=== PATIENT | male | born 1965 | race Caucasian/White ===

== ENCOUNTER 2017-02-02 10:31 | Day surgery (SDC) | payer OTHER ==
[~2017-02-02 10:31] MED LIST: Lactated Ringers 1,000 ML IV SCH; ceFAZolin 1 GM in Premix Bag 1 BAG IV ONE
[2017-02-02] MEDS ORDERED: fentaNYL 250 MCG/5 ML SDV ONE (10:46)
[2017-02-02] MEDS ORDERED: Propofol 200 MG/20 ML SDV ONE (10:46)
[2017-02-02] MEDS ORDERED: Lidocaine 2% 5 ML SDV ONE (10:46)
[2017-02-02] MEDS ORDERED: Midazolam 1 MG/ML 2 ML SDV ONE (10:46)
[2017-02-02] MEDS ORDERED: Ondansetron 4 MG/2 ML SDV ONE (10:47)
[2017-02-02] MEDS ORDERED: Ketorolac 30 MG/ML SDV ONE (10:47)
--- NOTE | 2017-02-02 11:23 | PCM.PREANE ---
Preanesthetic Assessment - Anesthesia/Transfusion/Family Hx Anesthesia History: Prior Anesthesia Without Reaction Transfusion History: No Prior Transfusion(s) - Review of Systems General: No Symptoms Pulmonary: No Symptoms (Smoker) Cardiovascular: Other (HTN/hypercholesterolemia) Gastrointestinal: Other (recent anal fissurectomy (01/28/17)) Neurological: No Symptoms Other: Reports: Diabetes (II, on metformin), Thyroid Problems (hypothyroid - on meds) - Physical Assessment NPO Status Date: 02/01/17 NPO Status Time: 23:30 O2 Sat by Pulse Oximetry: 95 Respiratory Rate: 16 Vital Signs: Last Vital Signs Temp 99.1 F 02/02/17 11:06 Pulse 78 02/02/17 11:06 Resp 16 02/02/17 11:06 BP 139/97 H 02/02/17 11:06 Pulse Ox 95 02/02/17 11:06 Height: 5 ft 10 in Weight: 202 lb ASA Class: 3 Mental Status: Alert & Oriented x3 Airway Class: Mallampati = 1 Dentition: Reports: Normal Dentition Thyro-Mental Finger Breadths: 3 Mouth Opening Finger Breadths: 3 ROM/Head Extension: Full Lungs: Clear to auscultation, Normal respiratory effort Cardiovascular: Regular Rate, Regular Rhythm, No Murmurs - Allergies Allergies/Adverse Reactions: Allergies Allergy/AdvReac Type Severity Reaction Status Date / Time No Known Allergies Allergy Verified 01/28/17 10:37 - Blood Blood Available: No Product(s) Available: None - Anesthesia Plan Pre-Op Medication Ordered: None - Acknowledgements Anesthesia Type Planned: General Anesthesia (LMA) Pt an Appropriate Candidate for the Planned Anesthesia: Yes Alternatives and Risks of Anesthesia Discussed w Pt/Guardian: Yes Pt/Guardian Understands and Agrees with Anesthesia Plan: Yes PreAnesthesia Questionnaire Cardiovascular History: Reports: High Cholesterol, Hypertension Genitourinary History: Reports: Other (See Below) Other Genitourinary History: presently has hematuria CT shows bladder tumor Endocrine/Metabolic History: Reports: Diabetes, Type II, Hypothyroidism - Past Surgical History Head Surgeries/Procedures: Reports: None GI Surgical History: Reports: Appendectomy, Colonoscopy, Hernia, Inguinal Other GI Surgeries/Procedures: colonoscopy with anal fissurectomy 01/28/17 Musculoskeletal Surgical History: Reports: Other (See Below) Other Musculoskeletal Surgeries/Procedures:: left hand surgery for crushed lt hand - SUBSTANCE USE Smoking Status *Q: Current Every Day Smoker Tobacco Use Within Last Twelve Months: Cigarettes Recreational Drug Use History: No - HOME MEDS Home Medications: Home Meds Fenofibrate Nanocrystallized [Fenofibrate] 145 mg PO DAILY 01/28/17 [History] Hydrochlorothiazide 12.5 mg PO DAILY 01/28/17 [History] Levothyroxine Sodium [Levoxyl] 50 mcg PO DAILY 01/28/17 [History] Valsartan 160 mg PO DAILY 01/28/17 [History] metFORMIN HCl [Metformin HCl] 500 mg PO BID 01/28/17 [History] - CURRENT (IN HOUSE) MEDS Current Meds: Current Medications Lactated Ringer's (Ringers, Lactated) 1,000 mls @ 100 mls/hr IV ASDIRECTED MEME Last Admin: 02/02/17 10:47 Dose: 100 mls/hr Discontinued Medications Fentanyl (Sublimaze) Confirm Administered Dose 250 mcg .ROUTE .STK-MED ONE Stop: 02/02/17 10:47 Cefazolin Sodium/Dextrose 1 gm (/ Premix) 50 mls @ 100 mls/hr IV ONCALL ONE Stop: 02/02/17 07:29 Cefazolin Sodium/Dextrose (Ancef) Confirm Administered Dose 50 mls @ as directed .ROUTE .STK-MED ONE Stop: 02/02/17 10:53 Ketorolac Tromethamine (Toradol) Confirm Administered Dose 30 mg .ROUTE .STK- MED ONE Stop: 02/02/17 10:48 Lidocaine (Xylocaine-Mpf 2%) Confirm Administered Dose 10 ml .ROUTE .STK-MED ONE Stop: 02/02/17 10:47 Midazolam HCl (Versed 1 Mg/Ml) Confirm Administered Dose 2 mg .ROUTE .STK-MED ONE Stop: 02/02/17 10:47 Ondansetron HCl (Zofran) Confirm Administered Dose 4 mg .ROUTE .STK-MED ONE Stop: 02/02/17 10:48 Propofol (Diprivan 20 Ml) Confirm Administered Dose 400 mg .ROUTE .STK-MED ONE Stop: 02/02/17 10:47
[2017-02-02] MEDS ORDERED: Labetalol 100 MG/20 ML MDV ONE (12:44)
[2017-02-02] MEDS ORDERED: fentaNYL 100 MCG/2 ML SDV IVPUSH PRN (12:48)
--- NOTE | 2017-02-02 13:41 | PCM.POSTAN ---
POST ANESTHESIA ASSESSMENT - MENTAL STATUS Mental Status: oriented Free Text/Narrative:: Patient still with residual sedation-analgesia so sleepy but responsive. To SDS for phase II. - RESPIRATORY Respiratory Status: respiratory rate WNL, airway patent, O2 saturation stable - CARDIOVASCULAR CV Status: pulse rate WNL, blood pressure stable - GASTROINTESTINAL GI Status: no symptoms - POST OP HYDRATION Hydration Status: adequate & stable
[2017-02-02 15:12] VITALS: BP 95/58
--- NOTE | 2017-02-02 21:29 | OR ---
SURGEON: Tyler Lee M.D. DATE OF PROCEDURE: 02/02/2017 PREOPERATIVE DIAGNOSIS: Bladder tumor. POSTOPERATIVE DIAGNOSIS: Bladder tumor. PROCEDURE: Transurethral resection of bladder tumor, side medium. DESCRIPTION OF PROCEDURE: The patient was given general anesthesia, placed in dorsal lithotomy position, prepped and draped in sterile drapes. Cystourethroscopy was done and confirmed the presence of a papillary tumor on the right wall of the bladder. The resectoscope was then used and the tumor was resected in its entirety. Biopsies of the base of the tumor were submitted separately. Bleeding points were fulgurated. The patient tolerated the procedure well and was moved to recovery room in good condition. CLARK / JOHN /[id number]
== END 2017-02-02 15:10 | disposition home or self-care (01) ==
LOC: MW.SDS 10:31
PROVIDERS: ATTEND Urology
PROC: 0TBB8ZX Excision of Bladder, Via Natural or Artificial Opening Endoscopic, Diagnostic (ICD-10-PCS; principal; 2017-02-02)
DX: C67.9 Malignant neoplasm of bladder, unspecified (principal); Z79.899 Other long term (current) drug therapy; E78.5 Hyperlipidemia, unspecified; F17.210 Nicotine dependence, cigarettes, uncomplicated; I10 Essential (primary) hypertension; E03.9 Hypothyroidism, unspecified; E11.9 Type 2 diabetes mellitus without complications; Z79.84 Long term (current) use of oral hypoglycemic drugs; R12 Heartburn; M54.9 Dorsalgia, unspecified
CPT/HCPCS: 52235; 82962; 88305; 88307; J0690; J1885; J2250; J2405; J3010; J7120; 00912; J2704

== ENCOUNTER 2017-05-18 06:40 | Day surgery (SDC) | payer OTHER ==
[2017-05-18] MEDS ORDERED: Sodium Chloride 0.9% 10 ML Syringe FLUSH PRN (07:00)
[2017-05-18] MEDS ORDERED: Sodium Chloride 0.9% 2.5 ML Syringe FLUSH PRN (07:00)
[2017-05-18] MEDS ORDERED: ceFAZolin 1 GM in Premix Bag 1 BAG IV ONE (07:00)
[2017-05-18] MEDS ORDERED: Lactated Ringers 1,000 ML IV SCH (07:00)
[2017-05-18] MEDS ORDERED: Lidocaine 2% 5 ML SDV ONE (07:44)
[2017-05-18] MEDS ORDERED: Midazolam 1 MG/ML 2 ML SDV ONE (07:44)
[2017-05-18] MEDS ORDERED: Propofol 200 MG/20 ML SDV ONE (07:44)
[2017-05-18] MEDS ORDERED: fentaNYL 100 MCG/2 ML SDV ONE (07:44)
--- NOTE | 2017-05-18 08:06 | PCM.PREANE ---
Preanesthetic Assessment - Procedure Proposed Procedure: Cystoscopy for follow-up to bladder tumor resection three months ago - Anesthesia/Transfusion/Family Hx Anesthesia History: Prior Anesthesia Without Reaction Other Type of Anesthesia Reaction Comment: BP dropped when attempted to do cysto in Dr. Pike office; deemed vasosva Family History of Anesthesia Reaction: No Transfusion History: No Prior Transfusion(s) - Review of Systems General: No Symptoms Pulmonary: Other (COPD, basilar atelectasis on earlier CXR; smoker) Cardiovascular: Other (Hypercholesterolemia) Gastrointestinal: No Symptoms Neurological: No Symptoms Other: Reports: Diabetes (on metformin), Anxiety - Physical Assessment NPO Status Date: 05/17/17 NPO Status Time: 21:00 O2 Sat by Pulse Oximetry: 95 Respiratory Rate: 16 Vital Signs: Last Vital Signs Temp 98.1 F 05/18/17 06:40 Pulse 81 05/18/17 06:40 Resp 16 05/18/17 06:40 BP 124/84 05/18/17 06:40 Pulse Ox 95 05/18/17 06:40 Height: 5 ft 10 in Weight: 192 lb ASA Class: 3 Mental Status: Alert & Oriented x3 Airway Class: Mallampati = 2 Dentition: Reports: Normal Dentition Thyro-Mental Finger Breadths: 3 Mouth Opening Finger Breadths: 3 (inflammed uvula area) ROM/Head Extension: Limited/Partial Lungs: Clear to Auscultation, Normal Respiratory Effort Cardiovascular: Regular Rate, Regular Rhythm, No Murmurs - Allergies Allergies/Adverse Reactions: Allergies Allergy/AdvReac Type Severity Reaction Status Date / Time No Known Allergies Allergy Verified 01/28/17 10:37 - Blood Blood Available: No Product(s) Available: None - Anesthesia Plan Free Text/Narrative:: present; Office procedure halted due to vasovagal episode, hence OR care today Pre-Op Medication Ordered: None - Acknowledgements Anesthesia Type Planned: General Anesthesia Pt an Appropriate Candidate for the Planned Anesthesia: Yes Alternatives and Risks of Anesthesia Discussed w Pt/Guardian: Yes Pt/Guardian Understands and Agrees with Anesthesia Plan: Yes PreAnesthesia Questionnaire Cardiovascular History: Reports: High Cholesterol, Hypertension Respiratory History: Reports: COPD Gastrointestinal History: Reports: None Genitourinary History: Reports: Other (See Below) Other Genitourinary History: presently has hematuria CT shows bladder tumor Neurological History: Reports: None Endocrine/Metabolic History: Reports: Diabetes, Type II, Hypothyroidism Oncologic (Cancer) History: Reports: Bladder - Past Surgical History Head Surgeries/Procedures: Reports: None GI Surgical History: Reports: Appendectomy, Colonoscopy, Hernia, Inguinal Other GI Surgeries/Procedures: colonoscopy with anal fissurectomy 01/28/17 Male Surgical History: Reports: TURBT-Transurethral Resection of Bladder Tumor Musculoskeletal Surgical History: Reports: Other (See Below) Other Musculoskeletal Surgeries/Procedures:: left hand surgery for crushed lt hand - SUBSTANCE USE Smoking Status *Q: Current Every Day Smoker Tobacco Use Within Last Twelve Months: Cigarettes Recreational Drug Use History: No - HOME MEDS Home Medications: Home Meds Levothyroxine Sodium [Levoxyl] 75 mcg PO DAILY 01/28/17 [History] metFORMIN HCl [Metformin HCl] 500 mg PO BID 01/28/17 [History] Ascorbic Acid [Vitamin C] 2 tab PO DAILY 05/13/17 [History] Empagliflozin [Jardiance] 25 mg PO DAILY 05/13/17 [History] Fenofibrate,Micronized [Fenofibrate] 200 mg PO DAILY 05/13/17 [History] Glycopyrrolate/Formoterol Fum [Bevespi Aerosphere Inhaler] 2 puff INH BID [History] Valsartan/Hydrochlorothiazide [Valsartan-Hctz 160-12.5 mg Tab] 1 tab PO DAILY [History] Vitamin A 3 tab PO DAILY 05/13/17 [History] Vitamin E 400 units PO DAILY 05/13/17 [History] atorvaSTATin Calcium [Atorvastatin Calcium] 10 mg PO BEDTIME 05/13/17 [History] - CURRENT (IN HOUSE) MEDS Current Meds: Current Medications Lactated Ringer's (Ringers, Lactated) 1,000 mls @ 100 mls/hr IV ASDIRECTED MEME Last Admin: 05/18/17 06:56 Dose: 100 mls/hr Sodium Chloride (Saline Flush) 10 ml FLUSH ASDIRECTED PRN PRN Reason: Keep Vein Open Sodium Chloride (Saline Flush) 2.5 ml FLUSH ASDIRECTED PRN PRN Reason: Keep Vein Open Discontinued Medications Fentanyl (Sublimaze) Confirm Administered Dose 200 mcg .ROUTE .STK-MED ONE Stop: 05/18/17 07:45 Cefazolin Sodium/Dextrose 1 gm (/ Premix) 50 mls @ 100 mls/hr IV ONCALL ONE Stop: 05/18/17 07:29 Lidocaine (Xylocaine-Mpf 2%) Confirm Administered Dose 10 ml .ROUTE .STK-MED ONE Stop: 05/18/17 07:45 Midazolam HCl (Versed 1 Mg/Ml) Confirm Administered Dose 2 mg .ROUTE .STK-MED ONE Stop: 05/18/17 07:45 Propofol (Diprivan 20 Ml) Confirm Administered Dose 400 mg .ROUTE .STK-MED ONE Stop: 05/18/17 07:45
[2017-05-18] MEDS ORDERED: fentaNYL 100 MCG/2 ML SDV IVPUSH PRN (08:50)
--- NOTE | 2017-05-18 08:50 | OR ---
SURGEON: Tyler Lee M.D. DATE OF PROCEDURE: 05/18/2017 PREOPERATIVE DIAGNOSIS: History of bladder cancer. POSTOPERATIVE DIAGNOSIS: History of bladder cancer. OPERATION: Cystoscopy. FINDINGS: No tumors found. Normal cystoscopy. DESCRIPTION OF OPERATION: The patient was given general anesthesia, placed in dorsal lithotomy position, prepped and draped in sterile drapes. Cystourethroscopy was done. The 22- [place] cystoscope was introduced in the bladder under vision without difficulty. The urethra is normal. The inside of the bladder was normal. No tumors or any other pathology is seen in the bladder. With that done, the procedure was terminated and the patient was sent back to recovery room in good condition. CLARK / JOHN /[id number]
--- NOTE | 2017-05-18 09:48 | PCM48HPAN ---
Post Anesthesia Note - EVALUATION WITHIN 48HRS OF ANESTHETIC Vital Signs in Normal Range: Yes Patient Participated in Evaluation: Yes Respiratory Function Stable: Yes Airway Patent: Yes Cardiovascular Function Stable: Yes Hydration Status Stable: Yes Pain Control Satisfactory: Yes Nausea and Vomiting Control Satisfactory: Yes Mental Status Recovered: Yes - COMMENTS/OBSERVATIONS Free Text/Narrative:: To home with his .
--- NOTE | 2017-05-18 09:49 | PCM.POSTAN ---
POST ANESTHESIA ASSESSMENT - MENTAL STATUS Mental Status: Alert, Oriented - RESPIRATORY Respiratory Status: Respiratory Rate WNL, Airway Patent, O2 Saturation Stable - CARDIOVASCULAR CV Status: Pulse Rate WNL, Blood Pressure Stable - GASTROINTESTINAL GI Status: No Symptoms - POST OP HYDRATION Hydration Status: Adequate & Stable
[2017-05-18 09:51] VITALS: BP 120/76
== END 2017-05-18 09:50 | disposition home or self-care (01) ==
LOC: MW.SDS 06:40
PROVIDERS: ATTEND Urology
DX: Z08 Encounter for follow-up examination after completed treatment for malignant neoplasm (principal); I10 Essential (primary) hypertension; E78.00 Pure hypercholesterolemia, unspecified; J44.9 Chronic obstructive pulmonary disease, unspecified; E11.9 Type 2 diabetes mellitus without complications; E03.9 Hypothyroidism, unspecified; F17.210 Nicotine dependence, cigarettes, uncomplicated; Z85.51 Personal history of malignant neoplasm of bladder; Z79.84 Long term (current) use of oral hypoglycemic drugs; Z79.899 Other long term (current) drug therapy; Z90.49 Acquired absence of other specified parts of digestive tract; Z98.890 Other specified postprocedural states
CPT/HCPCS: 52000; J2250; J3010; J7120; 00910; J2704

== ENCOUNTER 2017-11-16 08:52 | Day surgery (SDC) | payer OTHER ==
[~2017-11-16 08:52] MED LIST changes: +Sodium Chloride 0.9% 2.5 ML Syringe FLUSH PRN; -ceFAZolin 1 GM in Premix Bag 1 BAG IV ONE
--- NOTE | 2017-11-16 09:23 | PCM.PREANE ---
Preanesthetic Assessment - Anesthesia/Transfusion/Family Hx Anesthesia History: Prior Anesthesia Without Reaction Other Type of Anesthesia Reaction Comment: BP dropped when attempted to do cysto in Dr. Pike office; deemed vasosva Family History of Anesthesia Reaction: No Transfusion History: No Prior Transfusion(s) - Review of Systems General: No Symptoms Pulmonary: No Symptoms Cardiovascular: No Symptoms Gastrointestinal: No Symptoms Neurological: No Symptoms Other: Reports: None - Physical Assessment NPO Status Date: 11/15/17 O2 Sat by Pulse Oximetry: 100 Respiratory Rate: 16 Vital Signs: Last Vital Signs Temp 36.4 C 11/16/17 09:07 Pulse 78 11/16/17 09:07 Resp 16 11/16/17 09:07 BP 151/96 H 11/16/17 09:07 Pulse Ox 100 11/16/17 09:07 Height: 1.78 m Weight: 87.09 kg ASA Class: 2 Mental Status: Alert & Oriented x3 Airway Class: Mallampati = 1 Dentition: Reports: Normal Dentition ROM/Head Extension: Full Lungs: Clear to Auscultation, Normal Respiratory Effort Cardiovascular: Regular Rate, Regular Rhythm - Allergies Allergies/Adverse Reactions: Allergies Allergy/AdvReac Type Severity Reaction Status Date / Time No Known Allergies Allergy Verified 11/12/17 07:56 - Anesthesia Plan Pre-Op Medication Ordered: None (PMH: htn, hld, dm2. thyroid replacement, had a vasovagal episode when cysto attempted in drs office. PLAN: GA-LMA) - Acknowledgements Anesthesia Type Planned: General Anesthesia Pt an Appropriate Candidate for the Planned Anesthesia: Yes Alternatives and Risks of Anesthesia Discussed w Pt/Guardian: Yes Pt/Guardian Understands and Agrees with Anesthesia Plan: Yes PreAnesthesia Questionnaire Cardiovascular History: Reports: High Cholesterol, Hypertension Respiratory History: Reports: COPD Gastrointestinal History: Reports: None Genitourinary History: Reports: Other (See Below) Other Genitourinary History: bladder tumors Neurological History: Reports: None Endocrine/Metabolic History: Reports: Diabetes, Type II, Hypothyroidism Oncologic (Cancer) History: Reports: Bladder - Past Surgical History Head Surgeries/Procedures: Reports: None GI Surgical History: Reports: Appendectomy, Colonoscopy, Hernia, Inguinal Other GI Surgeries/Procedures: colonoscopy with anal fissurectomy 01/28/17 Male Surgical History: Reports: TURBT-Transurethral Resection of Bladder Tumor Musculoskeletal Surgical History: Reports: Other (See Below) Other Musculoskeletal Surgeries/Procedures:: left hand surgery for crushed lt hand - SUBSTANCE USE Smoking Status *Q: Current Every Day Smoker Tobacco Use Within Last Twelve Months: Cigarettes Recreational Drug Use History: No - HOME MEDS Home Medications: Home Meds Levothyroxine Sodium [Levoxyl] 75 mcg PO DAILY 01/28/17 [History] metFORMIN HCl [Metformin HCl] 2 tab PO BID 01/28/17 [History] Ascorbic Acid [Vitamin C] 2 tab PO DAILY 05/13/17 [History] Empagliflozin [Jardiance] 25 mg PO DAILY 05/13/17 [History] Fenofibrate,Micronized [Fenofibrate] 200 mg PO DAILY 05/13/17 [History] Glycopyrrolate/Formoterol Fum [Bevespi Aerosphere Inhaler] 2 puff INH BID [History] Valsartan/Hydrochlorothiazide [Valsartan-Hctz 160-12.5 mg Tab] 1 tab PO DAILY [History] Vitamin A 3 tab PO DAILY 05/13/17 [History] Vitamin E 400 units PO DAILY 05/13/17 [History] atorvaSTATin Calcium [Atorvastatin Calcium] 10 mg PO BEDTIME 05/13/17 [History] - CURRENT (IN HOUSE) MEDS Current Meds: Current Medications Lactated Ringer's (Ringers, Lactated) 1,000 mls @ 100 mls/hr IV ASDIRECTED [facility] Last Admin: 11/16/17 09:12 Dose: 100 mls/hr Sodium Chloride (Saline Flush) 2.5 ml FLUSH ASDIRECTED PRN PRN Reason: Keep Vein Open
[2017-11-16] MEDS ORDERED: Lidocaine 2% 5 ML SDV ONE (11:06)
[2017-11-16] MEDS ORDERED: Midazolam 1 MG/ML 2 ML SDV ONE (11:06)
[2017-11-16] MEDS ORDERED: fentaNYL 250 MCG/5 ML SDV ONE (11:06)
[2017-11-16] MEDS ORDERED: Propofol 200 MG/20 ML SDV ONE (11:06)
[2017-11-16] MEDS ORDERED: Glycopyrrolate 0.2 MG/ML SDV ONE (11:14)
[2017-11-16] MEDS ORDERED: Neostigmine Methylsulfate 1 MG/ML 5 ML Syringe ONE (11:16)
--- NOTE | 2017-11-16 12:51 | PCM.POSTAN ---
POST ANESTHESIA ASSESSMENT - MENTAL STATUS Mental Status: Alert, Oriented - RESPIRATORY Respiratory Status: Respiratory Rate WNL, Airway Patent, O2 Saturation Stable - CARDIOVASCULAR CV Status: Pulse Rate WNL, Blood Pressure Stable - GASTROINTESTINAL GI Status: No Symptoms - PAIN Pain Score: 0 - POST OP HYDRATION Hydration Status: Adequate & Stable
--- NOTE | 2017-11-16 13:44 | OR ---
SURGEON: Tyler Lee M.D. DATE OF PROCEDURE: 11/16/2017 PREOPERATIVE DIAGNOSIS: History of bladder cancer. POSTOPERATIVE DIAGNOSIS: History of bladder cancer. OPERATION: Cystoscopy. FINDINGS: Small papillary tumor, destroyed. DESCRIPTION: The patient was given general anesthesia, placed in dorsal lithotomy position, prepped and draped in sterile drapes. Cystourethroscopy was done, showed a 2-3 mm papillary tumor on the left side at the base of the bladder behind the left ureteral orifice. The cold cup biopsy forceps was used to remove the tumor and the Bugbee electrode was used to burn the base. The patient tolerated the procedure well and was moved to recovery room in good condition. CLARK / JOHN /[id number]
--- NOTE | 2017-11-16 14:36 | PCM.SN ---
- Free Text/Narrative Note: 1435, ok to transfer from phase 1 to phase 2 recovery. Sleeps when not stimulated, awakens easily, on nc o2.
[2017-11-16 15:29] VITALS: BP 124/88
--- NOTE | 2017-11-16 15:31 | PCM48HPAN ---
Post Anesthesia Note - EVALUATION WITHIN 48HRS OF ANESTHETIC Vital Signs in Normal Range: Yes Patient Participated in Evaluation: Yes Respiratory Function Stable: Yes Airway Patent: Yes Cardiovascular Function Stable: Yes Hydration Status Stable: Yes Pain Control Satisfactory: Yes Nausea and Vomiting Control Satisfactory: Yes Mental Status Recovered: Yes Resp Rate: 14 - COMMENTS/OBSERVATIONS Free Text/Narrative:: at bedside. Ready to go home in good condition.
== END 2017-11-16 15:43 | disposition home or self-care (01) ==
LOC: MW.SDS 08:52
PROVIDERS: ATTEND Urology
DX: C67.0 Malignant neoplasm of trigone of bladder (principal); I10 Essential (primary) hypertension; E11.9 Type 2 diabetes mellitus without complications; E78.00 Pure hypercholesterolemia, unspecified; E78.5 Hyperlipidemia, unspecified; J44.9 Chronic obstructive pulmonary disease, unspecified; F17.210 Nicotine dependence, cigarettes, uncomplicated; Z79.84 Long term (current) use of oral hypoglycemic drugs; Z79.899 Other long term (current) drug therapy
CPT/HCPCS: 00910; 82962; 88305; J2250; J2704; J3010; J7120

== ENCOUNTER 2018-03-22 06:40 | Day surgery (SDC) | payer OTHER ==
[~2018-03-22 06:40] MED LIST changes: +Sodium Chloride 0.9% 10 ML Syringe FLUSH PRN; +ceFAZolin 1 GM in Premix Bag 1 BAG IV ONE
[2018-03-22] MEDS ORDERED: Propofol 200 MG/20 ML SDV ONE (07:20)
[2018-03-22] MEDS ORDERED: Midazolam 1 MG/ML 2 ML SDV ONE (07:20)
[2018-03-22] MEDS ORDERED: fentaNYL 100 MCG/2 ML SDV ONE (07:20)
--- NOTE | 2018-03-22 07:56 | PCM.PREANE ---
Preanesthetic Assessment - Anesthesia/Transfusion/Family Hx Anesthesia History: Prior Anesthesia Without Reaction Other Type of Anesthesia Reaction Comment: BP dropped when attempted to do cysto in Dr. Pike office; deemed vasosva Family History of Anesthesia Reaction: No Transfusion History: No Prior Transfusion(s) - Review of Systems General: No Symptoms Pulmonary: No Symptoms Cardiovascular: No Symptoms Gastrointestinal: No Symptoms Neurological: No Symptoms Other: Reports: None - Physical Assessment NPO Status Date: 03/21/18 NPO Status Time: 20:00 O2 Sat by Pulse Oximetry: 94 Respiratory Rate: 16 Vital Signs: Last Vital Signs Temp 36.5 C 03/22/18 06:55 Pulse 72 03/22/18 06:55 Resp 16 03/22/18 06:55 BP 137/90 03/22/18 06:55 Pulse Ox 94 L 03/22/18 06:55 Height: 1.78 m Weight: 86.636 kg ASA Class: 3 Mental Status: Alert & Oriented x3 Airway Class: Mallampati = 1 Dentition: Reports: Normal Dentition ROM/Head Extension: Full Lungs: Clear to Auscultation, Normal Respiratory Effort Cardiovascular: Regular Rate, Regular Rhythm - Allergies Allergies/Adverse Reactions: Allergies Allergy/AdvReac Type Severity Reaction Status Date / Time No Known Allergies Allergy Verified 03/16/18 10:20 - Acknowledgements Anesthesia Type Planned: General Anesthesia Pt an Appropriate Candidate for the Planned Anesthesia: Yes Alternatives and Risks of Anesthesia Discussed w Pt/Guardian: Yes Pt/Guardian Understands and Agrees with Anesthesia Plan: Yes Additional Comments: PMH: dm2, htn, hld, thyroid replacement, COPD, smoker PreAnesthesia Questionnaire Cardiovascular History: Reports: High Cholesterol, Hypertension Respiratory History: Reports: COPD Gastrointestinal History: Reports: None Genitourinary History: Reports: Other (See Below) Other Genitourinary History: bladder tumors Neurological History: Reports: None Endocrine/Metabolic History: Reports: Diabetes, Type II, Hypothyroidism Oncologic (Cancer) History: Reports: Bladder - Past Surgical History Head Surgeries/Procedures: Reports: None GI Surgical History: Reports: Appendectomy, Colonoscopy, Hernia, Inguinal Other GI Surgeries/Procedures: colonoscopy with anal fissurectomy 01/28/17 Male Surgical History: Reports: TURBT-Transurethral Resection of Bladder Tumor Musculoskeletal Surgical History: Reports: Other (See Below) Other Musculoskeletal Surgeries/Procedures:: left hand surgery for crushed lt hand - SUBSTANCE USE Smoking Status *Q: Current Every Day Smoker Tobacco Use Within Last Twelve Months: Cigarettes Recreational Drug Use History: No - HOME MEDS Home Medications: Home Meds Levothyroxine Sodium [Levoxyl] 75 mcg PO DAILY 01/28/17 [History] metFORMIN HCl [Metformin HCl] 2 tab PO BID 01/28/17 [History] Ascorbic Acid [Vitamin C] 2 tab PO DAILY 05/13/17 [History] Empagliflozin [Jardiance] 25 mg PO DAILY 05/13/17 [History] Fenofibrate,Micronized [Fenofibrate] 200 mg PO DAILY 05/13/17 [History] Glycopyrrolate/Formoterol Fum [Bevespi Aerosphere Inhaler] 2 puff INH BID [History] Valsartan/Hydrochlorothiazide [Valsartan-Hctz 160-12.5 mg Tab] 1 tab PO DAILY [History] Vitamin A 3 tab PO DAILY 05/13/17 [History] Vitamin E 400 units PO DAILY 05/13/17 [History] atorvaSTATin Calcium [Atorvastatin Calcium] 10 mg PO BEDTIME 05/13/17 [History] - CURRENT (IN HOUSE) MEDS Current Meds: Current Medications Lactated Ringer's (Ringers, Lactated) 1,000 mls @ 100 mls/hr IV ASDIRECTED MEME Last Admin: 03/22/18 06:50 Dose: 100 mls/hr Sodium Chloride (Saline Flush) 10 ml FLUSH ASDIRECTED PRN PRN Reason: Keep Vein Open Sodium Chloride (Saline Flush) 2.5 ml FLUSH ASDIRECTED PRN PRN Reason: Keep Vein Open Discontinued Medications Fentanyl (Sublimaze) Confirm Administered Dose 100 mcg .ROUTE .STK-MED ONE Stop: 03/22/18 07:21 Cefazolin Sodium/Dextrose 1 gm (/ Premix) 50 mls @ 100 mls/hr IV ONCALL ONE Stop: 03/22/18 00:30 Midazolam HCl (Versed 1 Mg/Ml) Confirm Administered Dose 2 mg .ROUTE .STK-MED ONE Stop: 03/22/18 07:21 Propofol (Diprivan 20 Ml) Confirm Administered Dose 200 mg .ROUTE .STK-MED ONE Stop: 03/22/18 07:21
[2018-03-22] MEDS ORDERED: fentaNYL 100 MCG/2 ML SDV IVPUSH PRN (08:44)
--- NOTE | 2018-03-22 09:50 | PCM48HPAN ---
Post Anesthesia Note - EVALUATION WITHIN 48HRS OF ANESTHETIC Vital Signs in Normal Range: Yes Patient Participated in Evaluation: Yes Respiratory Function Stable: Yes Airway Patent: Yes Cardiovascular Function Stable: Yes Hydration Status Stable: Yes Pain Control Satisfactory: Yes Nausea and Vomiting Control Satisfactory: Yes Mental Status Recovered: Yes Resp Rate: 16
--- NOTE | 2018-03-22 09:57 | OR ---
SURGEON: Tyler Lee M.D. DATE OF PROCEDURE: 03/22/2018 PREOPERATIVE DIAGNOSIS: History of bladder malignancy. POSTOPERATIVE DIAGNOSIS: History of bladder malignancy. OPERATION: Cystoscopy and fulguration of small tumor. DESCRIPTION OF PROCEDURE: The patient was given general anesthesia, placed in dorsal lithotomy position, prepped and draped in sterile drapes. Cystourethroscopy was done, showed a small tumor about maybe 3 to 4 mm anteriorly at the bladder neck at about the 12 o'clock position. The Bugbee electrode was used to burn that. The rest of bladder was entirely normal. The urethra was normal as well. The patient tolerated the procedure well and was moved to recovery room in good condition. CLARK / JOHN /[id number]
[2018-03-22 10:29] VITALS: BP 118/87
== END 2018-03-22 10:05 | disposition home or self-care (01) ==
LOC: MW.SDS 06:40
PROVIDERS: ATTEND Urology
DX: C67.5 Malignant neoplasm of bladder neck (principal); J44.9 Chronic obstructive pulmonary disease, unspecified; I10 Essential (primary) hypertension; E03.9 Hypothyroidism, unspecified; E78.5 Hyperlipidemia, unspecified; E11.9 Type 2 diabetes mellitus without complications; F17.210 Nicotine dependence, cigarettes, uncomplicated; Z79.84 Long term (current) use of oral hypoglycemic drugs; Z79.899 Other long term (current) drug therapy
CPT/HCPCS: 52234; J2250; J2704; J3010; J7120

== ENCOUNTER 2019-08-01 00:19 | Inpatient (IN) | payer BC, OTHER ==
[2019-08-01] MEDS ORDERED: Sodium Chloride 0.9% 1,000 ML IV ONE (01:13)
[2019-08-01] MEDS ORDERED: Ketorolac 30 MG/ML SDV IVPUSH ONE (01:14)
[2019-08-01] MEDS ORDERED: Ondansetron 4 MG/2 ML SDV IVPUSH ONE (01:14)
[2019-08-01] MEDS ORDERED: Albuterol/Ipratropium 3.0-0.5 MG/3 ML Neb Soln NEB ONE (01:48)
[2019-08-01 01:56] LABS: BLOOD UREA NITROGEN,BUN 15 mg/dL (7.0-18.0); CARBON DIOXIDE,CO2 21.4 mmol/L (21.0-32.0); CHLORIDE,CL 104 mmol/L (98-107); GLUCOSE RANDOM 188 mg/dL (74-106); POTASSIUM,K 3.6 mmol/L (3.5-5.1); SODIUM,NA 139 mmol/L (136-148)
--- NOTE | 2019-08-01 01:58 | CR ---
INDICATION: chest pain TECHNIQUE: Chest 1 view. COMPARISON: 12/21/16 FINDINGS: Cardiovascular and mediastinum: Heart size and vasculature are normal in caliber and appearance. Mediastinum is within normal limits. Lungs and pleural space: Lungs are clear. No sign of infiltrate or mass. No sign of pleural effusion. No pneumothorax. Bones and soft tissues: No significant findings. IMPRESSION: Unremarkable chest. Dictated by: Ted Bailey MD @ 08/01/2019 01:57:23 (Electronically Signed)
--- NOTE | 2019-08-01 03:04 | EDM.PDOC ---
ED HPI GENERAL MEDICAL PROBLEM - General Chief Complaint: General Stated Complaint: COUGH,FEVER Time Seen by Provider: 08/01/19 01:12 Source of Information: Reports: Patient History Limitations: Reports: No Limitations - History of Present Illness INITIAL COMMENTS - FREE TEXT/NARRATIVE: 3-year-old male recently back from [place] on vacation presents to the emergency room with shortness of breath muscle aches cough not feeling good at all. This is been going on for the past 4 days patient has no fever in the ER. Patient has past medical history of bladder cancer, is also sick and she was on with him in [place]. 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 Pain Score (Numeric/FACES): 10 - Related Data Allergies Allergy/AdvReac Type Severity Reaction Status Date / Time No Known Allergies Allergy Verified 03/16/18 10:20 Home Meds: Home Meds Levothyroxine Sodium [Levoxyl] 75 mcg PO DAILY 01/28/17 [History] metFORMIN HCl [Metformin HCl] 2 tab PO BID 01/28/17 [History] Ascorbic Acid [Vitamin C] 2 tab PO DAILY 05/13/17 [History] Empagliflozin [Jardiance] 25 mg PO DAILY 05/13/17 [History] Valsartan/Hydrochlorothiazide [Valsartan-Hctz 160-12.5 mg Tab] 1 tab PO DAILY [History] Vitamin A 3 tab PO DAILY 05/13/17 [History] Vitamin E 400 units PO DAILY 05/13/17 [History] atorvaSTATin Calcium [Atorvastatin Calcium] 10 mg PO BEDTIME 05/13/17 [History] Past Medical History - Past Health History Medical/Surgical History: Denies Medical/Surgical History Cardiovascular History: Reports: High Cholesterol, Hypertension Respiratory History: Reports: COPD Gastrointestinal History: Reports: None Genitourinary History: Reports: Other (See Below) Other Genitourinary History: bladder tumors Neurological History: Reports: None Endocrine/Metabolic History: Reports: Diabetes, Type II, Hypothyroidism Oncologic (Cancer) History: Reports: Bladder - Past Surgical History Head Surgeries/Procedures: Reports: None GI Surgical History: Reports: Appendectomy, Colonoscopy, Hernia, Inguinal Other GI Surgeries/Procedures: colonoscopy with anal fissurectomy 01/28/17 Male Surgical History: Reports: TURBT-Transurethral Resection of Bladder Tumor Musculoskeletal Surgical History: Reports: Other (See Below) Other Musculoskeletal Surgeries/Procedures:: left hand surgery for crushed lt hand Social & Family History - Family History Family Medical History: Noncontributory - Tobacco Use Smoking Status *Q: Current Every Day Smoker Years of Tobacco use: 30 Packs/Tins Daily: 1 - Caffeine Use Caffeine Use: Reports: None - Recreational Drug Use Recreational Drug Use: No ED ROS GENERAL - Review of Systems Review Of Systems: Comprehensive ROS is negative, except as noted in HPI. Constitutional: Reports: No Symptoms, Chills, Malaise, Weakness, Fatigue HEENT: Reports: Throat Pain Respiratory: Reports: No Symptoms Cardiovascular: Reports: No Symptoms, Dyspnea on Exertion. Denies: Chest Pain Endocrine: Reports: No Symptoms GI/Abdominal: Reports: No Symptoms : Reports: No Symptoms Musculoskeletal: Reports: No Symptoms Skin: Reports: No Symptoms Neurological: Reports: No Symptoms Psychiatric: Reports: No Symptoms Hematologic/Lymphatic: Reports: No Symptoms Immunologic: Reports: No Symptoms ED EXAM, GENERAL - Physical Exam Exam: See Below Free Text/Narrative:: His exam is as follows. Patient's throat is red with some exudates appearing. Lungs are clear to auscultation chest is normal S1-S2 abdomen soft nontender negative flank pain. Extremity has no signs of DVT. Exam Limited By: No Limitations General Appearance: Alert, WD/WN, No Apparent Distress Ear Exam: Bilateral Ear: TM normal Nose: Normal Inspection, Normal Mucosa, No Blood, Clear Rhinorrhea Throat/Mouth: Normal Inspection, Normal Lips, Normal Teeth, Normal Gums, Normal Oropharynx, Normal Voice Head: Atraumatic, Normocephalic Neck: Normal Inspection, Supple, Non-Tender, Full Range of Motion Respiratory/Chest: No Respiratory Distress, Lungs Clear, Normal Breath Sounds, No Accessory Muscle Use, Chest Non-Tender Cardiovascular: Normal Peripheral Pulses, Regular Rate, Rhythm, No Edema, No Gallop, No JVD, No Murmur, No Rub GI/Abdominal: Normal Bowel Sounds, Soft, Non-Tender, No Organomegaly, No Distention, No Abnormal Bruit, No Mass (Male) Exam: No Hernia, Normal Inspection Extremities: Normal Inspection, Normal Range of Motion Neurological: Alert, Oriented, CN II-XII Intact, Normal Cognition Psychiatric: Normal Affect, Normal Mood Skin Exam: Dry, Intact, Normal Color, Decubitus Course - Vital Signs Last Recorded V/S: Last Vital Signs Temp 100 F 08/01/19 00:25 Pulse 70 08/01/19 02:53 Resp 22 H 08/01/19 02:53 BP 112/68 08/01/19 02:53 Pulse Ox 91 L 08/01/19 02:53 - Orders/Labs/Meds Orders: Active Orders 24 hr Category Date Time Status EKG 12 Lead [EKG Documentation Completion] [RC] STAT Care 08/01/19 02:19 Active RT Aerosol Therapy [RC] ASDIRECTED Care 08/01/19 01:48 Active CULTURE STREP A CONFIRMATION [] Stat Lab 08/01/19 01:00 Results STREP SCRN A RAPID W CULT CONF [] Stat Lab 08/01/19 01:00 Results Labs: Laboratory Tests 08/01/19 08/01/19 08/01/19 Range/Units 01:26 01:26 01:26 WBC 10.84 (4.0-11.0) K/uL RBC 4.86 (4.50-5.90) M/uL Hgb 14.8 (13.0-17.0) g/dL Hct 43.5 (38.0-50.0) % MCV 89.5 (80.0-98.0) fL MCH 30.5 (27.0-32.0) pg MCHC 34.0 (31.0-37.0) g/dL RDW Std Deviation 45.9 (28.0-62.0) fl RDW Coeff of Colt 14 (11.0-15.0) % Plt Count 236 (150-400) K/uL MPV 10.90 (7.40-12.00) fL Nucleated RBC % 0.0 /100WBC Nucleated RBCs # 0 K/uL Sodium 139 (136-148) mmol/L Potassium 3.6 (3.5-5.1) mmol/L Chloride 104 (98-107) mmol/L Carbon Dioxide 21.4 (21.0-32.0) mmol/L BUN 15 (7.0-18.0) mg/dL Creatinine 1.2 (0.8-1.3) mg/dL Est Cr Clr Drug Dosing 64.98 mL/min Estimated GFR (MDRD) > 60.0 ml/min Glucose 188 H (74-106) mg/dL Calcium 8.2 L (8.5-10.1) mg/dL Total Bilirubin 0.6 (0.2-1.0) mg/dL AST 15 (15-37) IU/L ALT 26 (14-63) IU/L Alkaline Phosphatase 44 L (46-116) U/L Troponin I < 0.050 (0.000-0.056) ng/mL Total Protein 6.9 (6.4-8.2) g/dL Albumin 2.7 L (3.4-5.0) g/dL Globulin 4.2 H (2.6-4.0) g/dL Albumin/Globulin Ratio 0.6 L (0.9-1.6) Urine Color Urine Appearance Urine pH (5.0-8.0) Ur Specific [place] (1.001-1.035) Urine Protein (NEGATIVE) mg/dL Urine Glucose (UA) (NEGATIVE) mg/dL Urine Ketones (NEGATIVE) mg/dL Urine Occult Blood (NEGATIVE) Urine Nitrite (NEGATIVE) Urine Bilirubin (NEGATIVE) Urine Urobilinogen (<2.0) EU/dL Ur Leukocyte Esterase (NEGATIVE) Urine RBC (0-2/HPF) Urine WBC (0-5/HPF) Ur Epithelial Cells (NONE-FEW) Urine Bacteria (NEGATIVE) Hyaline Casts (0-2/LPF) Urine Mucus (NONE-MOD) 08/01/19 Range/Units 01:30 WBC (4.0-11.0) K/uL RBC (4.50-5.90) M/uL Hgb (13.0-17.0) g/dL Hct (38.0-50.0) % MCV (80.0-98.0) fL MCH (27.0-32.0) pg MCHC (31.0-37.0) g/dL RDW Std Deviation (28.0-62.0) fl RDW Coeff of Colt (11.0-15.0) % Plt Count (150-400) K/uL MPV (7.40-12.00) fL Nucleated RBC % /100WBC Nucleated RBCs # K/uL Sodium (136-148) mmol/L Potassium (3.5-5.1) mmol/L Chloride (98-107) mmol/L Carbon Dioxide (21.0-32.0) mmol/L BUN (7.0-18.0) mg/dL Creatinine (0.8-1.3) mg/dL Est Cr Clr Drug Dosing mL/min Estimated GFR (MDRD) ml/min Glucose (74-106) mg/dL Calcium (8.5-10.1) mg/dL Total Bilirubin (0.2-1.0) mg/dL AST (15-37) IU/L ALT (14-63) IU/L Alkaline Phosphatase (46-116) U/L Troponin I (0.000-0.056) ng/mL Total Protein (6.4-8.2) g/dL Albumin (3.4-5.0) g/dL Globulin (2.6-4.0) g/dL Albumin/Globulin Ratio (0.9-1.6) Urine Color DARK YELLOW Urine Appearance CLEAR Urine pH 6.0 (5.0-8.0) Ur Specific [place] >= 1.030 (1.001-1.035) Urine Protein 100 H (NEGATIVE) mg/dL Urine Glucose (UA) NEGATIVE (NEGATIVE) mg/dL Urine Ketones NEGATIVE (NEGATIVE) mg/dL Urine Occult Blood NEGATIVE (NEGATIVE) Urine Nitrite NEGATIVE (NEGATIVE) Urine Bilirubin NEGATIVE (NEGATIVE) Urine Urobilinogen 1.0 (<2.0) EU/dL Ur Leukocyte Esterase NEGATIVE (NEGATIVE) Urine RBC 0-1 (0-2/HPF) Urine WBC 0-2 (0-5/HPF) Ur Epithelial Cells RARE (NONE-FEW) Urine Bacteria FEW (NEGATIVE) Hyaline Casts 0-1 (0-2/LPF) Urine Mucus LIGHT (NONE-MOD) Meds: Medications Discontinued Medications Generic Name Dose Route Start Last Admin Trade Name Freq PRN Reason Stop Dose Admin Albuterol/Ipratropium 3 ml 08/01/19 01:48 08/01/19 01:58 Duoneb 3.0-0.5 Mg/3 Ml NEB 08/01/19 01:49 3 ml ONETIME ONE Administration Sodium Chloride 1,000 mls @ 1,000 mls/hr 08/01/19 01:13 08/01/19 01:17 Normal Saline IV 01/14/20 02:12 1,000 mls/hr .Bolus ONE Administration Ketorolac Tromethamine 30 mg 08/01/19 01:14 08/01/19 01:18 Toradol IVPUSH 08/01/19 01:15 30 mg ONETIME ONE Administration Ondansetron HCl 4 mg 08/01/19 01:14 08/01/19 01:18 Zofran IVPUSH 08/01/19 01:15 4 mg ONETIME ONE Administration Departure - Departure Time of Disposition: 03:11 Disposition: Refer to Observation Condition: Good Clinical Impression: Hypoxemia - Discharge Information Referrals: Kamran Hunt MD [Primary Care Provider] - Sepsis Event Note - Evaluation Sepsis Screening Result: No Definite Risk - Focused Exam Vital Signs: Vital Signs Temp Pulse Resp BP Pulse Ox 08/01/19 02:53 70 22 H 112/68 91 L 08/01/19 02:33 80 89 L 08/01/19 02:13 92 22 H 127/68 87 L 08/01/19 00:25 100 F 95 24 H 150/79 H 89 L Date Exam was Performed: 08/01/19 Time Exam was Performed: 02:59 - My Orders Last 24 Hours: My Active Orders 08/01/19 01:00 CULTURE STREP A CONFIRMATION [RM] Stat STREP SCRN A RAPID W CULT CONF [RM] Stat 08/01/19 01:48 RT Aerosol Therapy [RC] ASDIRECTED 08/01/19 02:19 EKG 12 Lead [EKG Documentation Completion] [RC] STAT - Assessment/Plan Last 24 Hours: My Active Orders 08/01/19 01:00 CULTURE STREP A CONFIRMATION [RM] Stat STREP SCRN A RAPID W CULT CONF [RM] Stat 08/01/19 01:48 RT Aerosol Therapy [RC] ASDIRECTED 08/01/19 02:19 EKG 12 Lead [EKG Documentation Completion] [RC] STAT
[2019-08-01] MEDS ORDERED: Albuterol/Ipratropium 3.0-0.5 MG/3 ML Neb Soln NEB PRN (05:52)
[2019-08-01] MEDS ORDERED: Codeine/guaiFENesin 100-10 MG/5 ML Syrup 5 ML Cup PO PRN (08:56)
[2019-08-01] MEDS ORDERED: Ibuprofen 400 MG Tab PO PRN (08:56)
[2019-08-01] MEDS ORDERED: Acetaminophen 325 MG Tab PO PRN (08:56)
--- NOTE | 2019-08-01 09:01 | PCM.HP.2 ---
H&P History of Present Illness - General Date of Service: 08/01/19 Admit Problem/Dx: Admission Diagnosis/Problem Admission Diagnosis/Problem Hypoxemia Source of Information: Patient History Limitations: Reports: No Limitations - History of Present Illness Initial Comments - Free Text/Narative: This 53 year old male with pmh of tobacco abuse, dyslipidemia, borderline DM and HTN presented to the ED last evening with complaints of cough, fevers, chills and body aches. Reports symptoms first started last Wednesday and have progressively worsened, him and his recently returned from [place]. He reports he has a dry cough, rhinitis, sore throat and pleuritic chest pain along with body aches, poor appetite. He reports not getting the influenza vaccine this year. In the ED no leukocytosis noted, BMP stable. UA negative. Influenza negative, strep negative. CXR negative. He was noted to be hypoxic on 4 l NC sating mid 90s. body Pain Score (Numeric/FACES): 2 - Related Data Allergies/Adverse Reactions: Allergies Allergy/AdvReac Type Severity Reaction Status Date / Time No Known Allergies Allergy Verified 08/01/19 04:36 Home Medications: Home Meds metFORMIN HCl [Metformin HCl] 1,000 mg PO BIDMEALS 01/28/17 [History] Ascorbic Acid [Vitamin C] 2 tab PO DAILY 05/13/17 [History] Vitamin A 3 tab PO DAILY 05/13/17 [History] Vitamin E 400 units PO DAILY 05/13/17 [History] atorvaSTATin Calcium [Atorvastatin Calcium] 40 mg PO BEDTIME 05/13/17 [History] Empagliflozin [Jardiance] 10 mg PO DAILY 08/01/19 [History] Fenofibrate,Micronized [Fenofibrate] 200 mg PO DAILY 08/01/19 [History] Glimepiride [Amaryl] 2 mg PO WITHBREAKFAST 08/01/19 [History] Icosapent Ethyl [Vascepa] 2 gm PO BID 08/01/19 [History] Levothyroxine Sodium 88 mg PO ACBREAKFAST 08/01/19 [History] Losartan/Hydrochlorothiazide [Losartan-HCTZ 100-12.5 MG] 1 tab PO DAILY [History] Past Medical History - Past Health History Medical/Surgical History: Denies Medical/Surgical History Cardiovascular History: Reports: High Cholesterol, Hypertension Respiratory History: Reports: COPD Gastrointestinal History: Reports: None Genitourinary History: Reports: Other (See Below) Other Genitourinary History: bladder tumors Neurological History: Reports: None Endocrine/Metabolic History: Reports: Diabetes, Type II, Hypothyroidism Oncologic (Cancer) History: Reports: Bladder - Past Surgical History Head Surgeries/Procedures: Reports: None GI Surgical History: Reports: Appendectomy, Colonoscopy, Hernia, Inguinal Other GI Surgeries/Procedures: colonoscopy with anal fissurectomy 01/28/17 Male Surgical History: Reports: TURBT-Transurethral Resection of Bladder Tumor Musculoskeletal Surgical History: Reports: Other (See Below) Other Musculoskeletal Surgeries/Procedures:: left hand surgery for crushed lt hand Social & Family History - Family History Family Medical History: Noncontributory - Tobacco Use Smoking Status *Q: Current Every Day Smoker Years of Tobacco use: 30 Packs/Tins Daily: 1 Second Hand Smoke Exposure: Yes - Caffeine Use Caffeine Use: Reports: Soda - Recreational Drug Use Recreational Drug Use: No H&P Review of Systems - Review of Systems: Review Of Systems: See Below General: Reports: Fever, Chills, Malaise, Fatigue HEENT: Reports: Sinus Congestion Pulmonary: Reports: Shortness of Breath, Pleuritic Chest Pain, Cough Cardiovascular: Reports: No Symptoms. Denies: Chest Pain Gastrointestinal: Reports: Decreased Appetite. Denies: Abdominal Pain, Nausea, Vomiting Genitourinary: Reports: No Symptoms. Denies: Dysuria, Frequency, Burning Skin: Reports: No Symptoms Psychiatric: Reports: No Symptoms Neurological: Reports: No Symptoms Hematologic/Lymphatic: Reports: No Symptoms Immunologic: Reports: No Symptoms Exam - Exam Exam: See Below - Vital Signs Vital Signs: Last Vital Signs Temp 97.4 F 08/01/19 07:40 Pulse 78 08/01/19 07:40 Resp 14 08/01/19 07:40 BP 119/76 08/01/19 07:40 Pulse Ox 92 L 08/01/19 07:40 Weight: 86.3 kg - Exam General: Alert, Oriented HEENT: Hearing Intact, Pupils Reactive. No: Posterior Pharynx Clear (erythema) Neck: Supple, Trachea Midline, Full Range of Motion. No: Lymphadenopathy Lungs: Crackles, Rhonchi. No: Normal Respiratory Effort (dyspnea) Cardiovascular: Regular Rate, Regular Rhythm GI/Abdominal Exam: Normal Bowel Sounds, Soft, Non-Tender Extremities: Normal Inspection, Normal Range of Motion, Non-Tender, No Pedal Edema Neuro Extensive - Mental Status: Alert, Oriented x3, Normal Mood/Affect Neuro Extensive - Motor, Sensory, Reflexes: CN II-XII Intact, Normal Gait Psychiatric: Alert, Normal Affect, Normal Mood - Patient Data Lab Results Last 24 hrs: Laboratory Results - last 24 hr 08/01/19 08/01/19 08/01/19 Range/Units 01:26 01:26 01:26 WBC 10.84 (4.0-11.0) K/uL RBC 4.86 (4.50-5.90) M/uL Hgb 14.8 (13.0-17.0) g/dL Hct 43.5 (38.0-50.0) % MCV 89.5 (80.0-98.0) fL MCH 30.5 (27.0-32.0) pg MCHC 34.0 (31.0-37.0) g/dL RDW Std Deviation 45.9 (28.0-62.0) fl RDW Coeff of Colt 14 (11.0-15.0) % Plt Count 236 (150-400) K/uL MPV 10.90 (7.40-12.00) fL Nucleated RBC % 0.0 /100WBC Nucleated RBCs # 0 K/uL Sodium 139 (136-148) mmol/L Potassium 3.6 (3.5-5.1) mmol/L Chloride 104 (98-107) mmol/L Carbon Dioxide 21.4 (21.0-32.0) mmol/L BUN 15 (7.0-18.0) mg/dL Creatinine 1.2 (0.8-1.3) mg/dL Est Cr Clr Drug Dosing 64.98 mL/min Estimated GFR (MDRD) > 60.0 ml/min Glucose 188 H (74-106) mg/dL Calcium 8.2 L (8.5-10.1) mg/dL Total Bilirubin 0.6 (0.2-1.0) mg/dL AST 15 (15-37) IU/L ALT 26 (14-63) IU/L Alkaline Phosphatase 44 L (46-116) U/L Troponin I < 0.050 (0.000-0.056) ng/mL Total Protein 6.9 (6.4-8.2) g/dL Albumin 2.7 L (3.4-5.0) g/dL Globulin 4.2 H (2.6-4.0) g/dL Albumin/Globulin Ratio 0.6 L (0.9-1.6) Urine Color Urine Appearance Urine pH (5.0-8.0) Ur Specific [place] (1.001-1.035) Urine Protein (NEGATIVE) mg/dL Urine Glucose (UA) (NEGATIVE) mg/dL Urine Ketones (NEGATIVE) mg/dL Urine Occult Blood (NEGATIVE) Urine Nitrite (NEGATIVE) Urine Bilirubin (NEGATIVE) Urine Urobilinogen (<2.0) EU/dL Ur Leukocyte Esterase (NEGATIVE) Urine RBC (0-2/HPF) Urine WBC (0-5/HPF) Ur Epithelial Cells (NONE-FEW) Urine Bacteria (NEGATIVE) Hyaline Casts (0-2/LPF) Urine Mucus (NONE-MOD) 08/01/19 Range/Units 01:30 WBC (4.0-11.0) K/uL RBC (4.50-5.90) M/uL Hgb (13.0-17.0) g/dL Hct (38.0-50.0) % MCV (80.0-98.0) fL MCH (27.0-32.0) pg MCHC (31.0-37.0) g/dL RDW Std Deviation (28.0-62.0) fl RDW Coeff of Colt (11.0-15.0) % Plt Count (150-400) K/uL MPV (7.40-12.00) fL Nucleated RBC % /100WBC Nucleated RBCs # K/uL Sodium (136-148) mmol/L Potassium (3.5-5.1) mmol/L Chloride (98-107) mmol/L Carbon Dioxide (21.0-32.0) mmol/L BUN (7.0-18.0) mg/dL Creatinine (0.8-1.3) mg/dL Est Cr Clr Drug Dosing mL/min Estimated GFR (MDRD) ml/min Glucose (74-106) mg/dL Calcium (8.5-10.1) mg/dL Total Bilirubin (0.2-1.0) mg/dL AST (15-37) IU/L ALT (14-63) IU/L Alkaline Phosphatase (46-116) U/L Troponin I (0.000-0.056) ng/mL Total Protein (6.4-8.2) g/dL Albumin (3.4-5.0) g/dL Globulin (2.6-4.0) g/dL Albumin/Globulin Ratio (0.9-1.6) Urine Color DARK YELLOW Urine Appearance CLEAR Urine pH 6.0 (5.0-8.0) Ur Specific [place] >= 1.030 (1.001-1.035) Urine Protein 100 H (NEGATIVE) mg/dL Urine Glucose (UA) NEGATIVE (NEGATIVE) mg/dL Urine Ketones NEGATIVE (NEGATIVE) mg/dL Urine Occult Blood NEGATIVE (NEGATIVE) Urine Nitrite NEGATIVE (NEGATIVE) Urine Bilirubin NEGATIVE (NEGATIVE) Urine Urobilinogen 1.0 (<2.0) EU/dL Ur Leukocyte Esterase NEGATIVE (NEGATIVE) Urine RBC 0-1 (0-2/HPF) Urine WBC 0-2 (0-5/HPF) Ur Epithelial Cells RARE (NONE-FEW) Urine Bacteria FEW (NEGATIVE) Hyaline Casts 0-1 (0-2/LPF) Urine Mucus LIGHT (NONE-MOD) Result Diagrams: 08/01/19 10:16 08/01/19 10:16 Allen Results Last 24 hrs: Microbiology 08/01/19 01:00 Group A Streptococcus Rapid Screen - Final Throat NEGATIVE STREP A SCREEN REFERENCE RANGE: NEGATIVE 08/01/19 00:30 Influenza Type A Antigen Screen - Final Nasopharyngeal Swab NEGATIVE INFLUENZA A VIRUS AG REFERENCE RANGE: NEGATIVE Influenza Type B Antigen Screen - Final NEGATIVE INFLUENZA B VIRUS AG REFERENCE RANGE: NEGATIVE Sepsis Event Note - Evaluation Sepsis Screening Result: No Definite Risk - Focused Exam Vital Signs: Vital Signs Temp Pulse Resp BP Pulse Ox 08/01/19 07:40 97.4 F 78 14 119/76 92 L 08/01/19 04:16 97.1 F 80 21 H 139/77 92 L 08/01/19 03:21 97.9 F 83 22 H 126/63 91 L 08/01/19 02:53 70 22 H 112/68 91 L 08/01/19 02:33 80 89 L 08/01/19 02:13 92 22 H 127/68 87 L 08/01/19 00:25 100 F 95 24 H 150/79 H 89 L Date Exam was Performed: 08/01/19 Time Exam was Performed: 15:10 - Problem List (1) CAP (community acquired pneumonia) SNOMED Code(s): 176351923 ICD Code: J18.9 - PNEUMONIA, UNSPECIFIED ORGANISM Status: Acute Current Visit: Yes (2) Hypoxemia SNOMED Code(s): 091882328 ICD Code: R09.02 - HYPOXEMIA Status: Acute Current Visit: Yes (3) Influenza SNOMED Code(s): 2456875 ICD Code: J11.1 - FLU DUE TO UNIDENTIFIED INFLUENZA VIRUS W OTH RESP MANIFEST Status: Acute Current Visit: Yes (4) HTN (hypertension) SNOMED Code(s): 33460351 ICD Code: I10 - ESSENTIAL (PRIMARY) HYPERTENSION Status: Chronic Current Visit: Yes (5) Dyslipidemia SNOMED Code(s): 489799771 ICD Code: E78.5 - HYPERLIPIDEMIA, UNSPECIFIED Status: Chronic Current Visit: Yes (6) Tobacco abuse SNOMED Code(s): 352592379 ICD Code: Z72.0 - TOBACCO USE Status: Chronic Current Visit: Yes Problem List Initiated/Reviewed/Updated: Yes Orders Last 24hrs: Active Orders 24 hr Category Date Time Status Admission Status [Patient Status] [ADT] Stat ADT 08/01/19 03:12 Active Blood Glucose Check, Bedside [] TIDAC Care 08/01/19 09:00 Ordered EKG 12 Lead [EKG Documentation Completion] [] STAT Care 08/01/19 02:19 Active Intake and Output [RC] QSHIFT Care 08/01/19 08:59 Ordered Oxygen Therapy [RC] PRN Care 08/01/19 08:58 Ordered RT Aerosol Therapy [RC] ASDIRECTED Care 08/01/19 01:48 Active RT Aerosol Therapy [RC] ASDIRECTED Care 08/01/19 05:53 Active Telemetry Monitoring [Cardiac Monitoring] [] Q8H Care 08/01/19 03:22 Active Up ad Dina [] ASDIRECTED Care 08/01/19 08:58 Ordered VTE/DVT Education [RC] PER UNIT ROUTINE Care 08/01/19 08:58 Ordered Vital Signs [] Q4H Care 08/01/19 08:58 Ordered ADA Diabetic [[place] [employer] Diet] [DIET Diet 08/01/19 Breakfast Active ] CULTURE STREP A CONFIRMATION [] Stat Lab 08/01/19 01:00 Results STREP SCRN A RAPID W CULT CONF [] Stat Lab 08/01/19 01:00 Results Acetaminophen [Tylenol] Med 08/01/19 08:56 Ordered 650 mg PO Q4H PRN Albuterol/Ipratropium [DuoNeb 3.0-0.5 MG/3 ML] Med 08/01/19 05:52 Active 3 ml NEB Q4H PRN Codeine/guaiFENesin [Robitussin AC] Med 08/01/19 08:56 Ordered 5 ml PO Q4H PRN Ibuprofen [Motrin] Med 08/01/19 08:56 Ordered 400 mg PO Q6H PRN Insulin Aspart [NovoLOG] Med 08/01/19 11:30 Ordered See Protocol SUBCUT TIDAC Levothyroxine [Synthroid] Med 08/02/19 09:00 Ordered 75 mcg PO DAILY Oseltamivir [Tamiflu] Med 08/01/19 09:00 Ordered 75 mg PO BID Sodium Chloride 0.9% [Normal Saline] 1,000 ml Med 08/01/19 09:00 Ordered IV Q10H atorvaSTATin [Lipitor] Med 08/02/19 09:00 Ordered 10 mg PO DAILY Resuscitation Status Routine Resus Stat 08/01/19 08:58 Ordered Medication Orders Acetaminophen (Tylenol) 650 mg PO Q4H PRN PRN Reason: Pain Albuterol/Ipratropium (Duoneb 3.0-0.5 Mg/3 Ml) 3 ml NEB Q4H PRN PRN Reason: Shortness of Breath Guaifenesin/Codeine Phosphate (Robitussin Ac) 5 ml PO Q4H PRN PRN Reason: Cough Sodium Chloride (Normal Saline) 1,000 mls @ 100 mls/hr IV Q10H MEME Ibuprofen (Motrin) 400 mg PO Q6H PRN PRN Reason: Pain Insulin Aspart (Novolog) 0 unit SUBCUT TIDAC MEME; Protocol Oseltamivir Phosphate (Tamiflu) 75 mg PO BID MEME Assessment/Plan Comment:: This 53 year old male admitted with hypoxia with influenza and pneumonia 1. CAP: CT angio obtained to rule out PE. No PE noted but did not bronchopneumonia. Levaquin 750 mg started this morning. Will continue this. Duonebs. Wean off oxygen PRN. IS 2. Influenza: Though test negative, high suspicion due to clinical symptoms. Will treat with Tamiflu 75 mg BID. Supportive care. 3. HTN: Stable, continue home medications 4. Dyslipidemia: Hold statin due to influenza for now. CPK obtained, normal. VTE prophylaxis: SCDs Dispo: will make inpatient due to hypoxia and pneumonia along with influenza. - Mortality Measure Prognosis:: Good
[2019-08-01] MEDS: Oseltamivir 75 MG Cap PO SCH ×2 (10:08→21:01)
[2019-08-01] MEDS: Sodium Chloride 0.9% 1,000 ML IV SCH ×2 (10:08→21:02)
[2019-08-01] MEDS: Levothyroxine 88 MCG Tab PO SCH (10:08)
[2019-08-01] MEDS: Levofloxacin/Dextrose 5%-Water 750 MG in Premix Bag 1 BAG IV SCH (10:14)
[2019-08-01 10:59] LABS: BLOOD UREA NITROGEN,BUN 18 mg/dL (7.0-18.0); CHLORIDE,CL 104 mmol/L (98-107); GLUCOSE RANDOM 135 mg/dL (74-106); POTASSIUM,K 3.5 mmol/L (3.5-5.1); SODIUM,NA 140 mmol/L (136-148)
[2019-08-01] MEDS ORDERED: Iopamidol 755 MG/ML 200 ML Multipack Bottle IVPUSH ONE (12:08)
[2019-08-01] MEDS: Insulin Aspart 100 Units/ML 3 ML Pen SUBCUT SCH ×2 (12:12→17:09)
--- NOTE | 2019-08-01 12:27 | CT ---
CT chest Technique: Multiple axial sections were obtained from above the lung apices inferiorly through the lung bases. Intravenous contrast was utilized. Study has been performed as a pulmonary angiogram protocol. Findings: Pulmonary arteries are well-opacified. No filling defects are seen to indicate pulmonary embolism. No pericardial thickening is seen. Mediastinum and hilar regions appear within normal limits. Mild coronary artery calcification is noted. Visualized upper abdominal structures shows no discrete abnormality. Patchy areas of increased density are seen within both lower lungs as well as within portions of the left upper lung. Findings are suspicious for scattered bronchopneumonia. No pleural effusions are seen. No acute osseous finding is seen. Impression: 1. No findings of pulmonary embolism. 2. Patchy areas of increased parenchymal density as noted above suspicious for bronchopneumonia. Diagnostic code #3 This report was dictated in [place] Standard Time
[2019-08-01] MEDS ORDERED: atorvaSTATin 40 MG Tab PO SCH (21:00)
[2019-08-02 05:58] LABS: BLOOD UREA NITROGEN,BUN 10 mg/dL (7.0-18.0); CARBON DIOXIDE,CO2 22.5 mmol/L (21.0-32.0); CHLORIDE,CL 108 mmol/L (98-107); GLUCOSE RANDOM 174 mg/dL (74-106); POTASSIUM,K 3.8 mmol/L (3.5-5.1); SODIUM,NA 143 mmol/L (136-148)
[2019-08-02] MEDS: Levothyroxine 88 MCG Tab PO SCH (07:23)
[2019-08-02] MEDS: Sodium Chloride 0.9% 1,000 ML IV SCH (07:24)
[2019-08-02] MEDS: Oseltamivir 75 MG Cap PO SCH (08:23)
[2019-08-02] MEDS: Insulin Aspart 100 Units/ML 3 ML Pen SUBCUT SCH (08:25)
--- NOTE | 2019-08-02 10:16 | PCM.DCSUM1 ---
Discharge Summary - Hospital Course Brief History: This 53 year old male with pmh of tobacco abuse, dyslipidemia, borderline DM and HTN presented to the ED last evening with complaints of cough , fevers, chills and body aches. Reports symptoms first started last Wednesday and have progressively worsened, him and his recently returned from [place] cruise. He reports he has a dry cough, rhinitis, sore throat and pleuritic chest pain along with body aches, poor appetite. He reports not getting the influenza vaccine this year. In the ED no leukocytosis noted, BMP stable. UA negative. Influenza negative, strep negative. CXR negative. He was noted to be hypoxic on 4 l NC sating mid 90s. Diagnosis: Stroke: No - Discharge Data Discharge Date: 08/02/19 Discharge Disposition: Home, Self-Care 01 Condition: Good - Referral to Home Health Primary Care Physician: Kamran Hunt MD - Discharge Diagnosis/Problem(s) (1) CAP (community acquired pneumonia) SNOMED Code(s): 717706837 ICD Code: J18.9 - PNEUMONIA, UNSPECIFIED ORGANISM Status: Acute Current Visit: Yes (2) Hypoxemia SNOMED Code(s): 710761496 ICD Code: R09.02 - HYPOXEMIA Status: Acute Current Visit: Yes (3) Influenza SNOMED Code(s): 8151259 ICD Code: J11.1 - FLU DUE TO UNIDENTIFIED INFLUENZA VIRUS W OTH RESP MANIFEST Status: Acute Current Visit: Yes (4) HTN (hypertension) SNOMED Code(s): 53130073 ICD Code: I10 - ESSENTIAL (PRIMARY) HYPERTENSION Status: Chronic Current Visit: Yes (5) Dyslipidemia SNOMED Code(s): 031830807 ICD Code: E78.5 - HYPERLIPIDEMIA, UNSPECIFIED Status: Chronic Current Visit: Yes (6) Tobacco abuse SNOMED Code(s): 762957640 ICD Code: Z72.0 - TOBACCO USE Status: Chronic Current Visit: Yes - Patient Instructions Diet: Heart Healthy Diet, Diabetic Diet Activity: No Strenuous Activities, Rest and Relax Today Showering/Bathing: May Shower Notify Provider of: Fever, Increased Pain, Swelling and Redness, Drainage, Nausea and/or Vomiting - Discharge Plan *PRESCRIPTION DRUG MONITORING PROGRAM REVIEWED*: Not Applicable *COPY OF PRESCRIPTION DRUG MONITORING REPORT IN PATIENT JESU: Not Applicable Prescriptions/Med Rec: levoFLOXacin [Levaquin] 750 mg PO DAILY #5 tab Oseltamivir [Tamiflu] 75 mg PO BID #10 cap Home Medications: Home Meds metFORMIN HCl [Metformin HCl] 1,000 mg PO BIDMEALS 01/28/17 [History] Ascorbic Acid [Vitamin C] 2 tab PO DAILY 05/13/17 [History] Vitamin A 3 tab PO DAILY 05/13/17 [History] Vitamin E 400 units PO DAILY 05/13/17 [History] atorvaSTATin Calcium [Atorvastatin Calcium] 40 mg PO BEDTIME 05/13/17 [History] Empagliflozin [Jardiance] 10 mg PO DAILY 08/01/19 [History] Fenofibrate,Micronized [Fenofibrate] 200 mg PO DAILY 08/01/19 [History] Glimepiride [Amaryl] 2 mg PO WITHBREAKFAST 08/01/19 [History] Icosapent Ethyl [Vascepa] 2 gm PO BID 08/01/19 [History] Levothyroxine Sodium 88 mg PO ACBREAKFAST 08/01/19 [History] Losartan/Hydrochlorothiazide [Losartan-HCTZ 100-12.5 MG] 1 tab PO DAILY [History] Acetaminophen [Tylenol] 650 mg PO Q4H PRN tablet 08/02/19 [Rx] Oseltamivir [Tamiflu] 75 mg PO BID #10 cap 08/02/19 [Rx] levoFLOXacin [Levaquin] 750 mg PO DAILY #5 tab 08/02/19 [Rx] Patient Handouts: Influenza, Adult, [id number], Oseltamivir capsules, Levofloxacin tablets, Community-Acquired Pneumonia, Adult, [id number] Referrals: [facility] [Outside] Kamran Hunt MD [Primary Care Provider] - 08/08/19 1:00 pm (Please come 15 minutes before your scheduled appointment time.) - Discharge Summary/Plan Comment DC Time >30 min.: No Discharge Summary/Plan Comment: Admitting Diagnoses: Hypoxia Influenza CAP Discharge Diagnoses: Influenza CAP Hypoxia-resolved Other PMH: Borderline DM HTN Nuno was admitted secondary to hypoxia. He was noted to be negative for influenza, but clinically appeared to have it. He was started on Tamiflu. He continued to be hypoxic and with recent travel, hx of tobacco use CT angio was obtained, this was negative for PE but did show pneumonia. He was started on Levaquin. Today he is feeling improved, very tired though as he didn't sleep well in the hospital. he is requesting discharge home. We were able to wean off oxygen today, sating 95% on RA. He will be sent home on 5 more days of Tamiflu and 5 more days of Levaquin. We did speak about smoking cessation, not too eager to quit yet. He is to follow up with PCP in 1 week and return to ED or clinic if concerns should arise. - General Info Date of Service: 08/02/19 Admission Dx/Problem (Free Text: Admission Diagnosis/Problem Admission Diagnosis/Problem Hypoxemia Subjective Update: Feeling improved today. Tired, no chest pain or SOB. Productive cough, reports chest is loosening up. Functional Status: Reports: Pain Controlled, Tolerating Diet, Ambulating, Urinating - Review of Systems General: Reports: Fatigue, Malaise HEENT: Reports: Sinus Congestion, Sore Throat Pulmonary: Reports: No Symptoms. Denies: Shortness of Breath Cardiovascular: Reports: No Symptoms. Denies: Chest Pain Gastrointestinal: Reports: No Symptoms. Denies: Abdominal Pain, Nausea, Vomiting Genitourinary: Reports: No Symptoms Musculoskeletal: Reports: No Symptoms Skin: Reports: No Symptoms Neurological: Reports: No Symptoms Psychiatric: Reports: No Symptoms - Patient Data Vitals - Most Recent: Last Vital Signs Temp 97.5 F 08/02/19 08:00 Pulse 77 08/02/19 08:00 Resp 18 08/02/19 08:00 BP 129/74 08/02/19 08:00 Pulse Ox 94 L 08/02/19 08:00 Weight - Most Recent: 86.3 kg I&O - Last 24 hours: Intake & Output 08/01/19 08/02/19 08/02/19 22:59 06:59 14:59 Intake Total 1000 2431 Output Total 590 1200 Balance 410 1231 Lab Results - Last 24 hrs: Laboratory Results - last 24 hr 08/01/19 08/01/19 08/01/19 Range/Units 10:16 10:16 12:11 WBC 10.17 (4.0-11.0) K/uL RBC 4.68 (4.50-5.90) M/uL Hgb 14.1 (13.0-17.0) g/dL Hct 42.3 (38.0-50.0) % MCV 90.4 (80.0-98.0) fL MCH 30.1 (27.0-32.0) pg MCHC 33.3 (31.0-37.0) g/dL RDW Std Deviation 46.5 (28.0-62.0) fl RDW Coeff of Colt 14 (11.0-15.0) % Plt Count 224 (150-400) K/uL MPV 11.20 (7.40-12.00) fL Neut % (Auto) (48.0-80.0) % Lymph % (Auto) (16.0-40.0) % [place] % (Auto) (0.0-15.0) % Eos % (Auto) (0.0-7.0) % Baso % (Auto) (0.0-1.5) % Neut # (Auto) (1.4-5.7) K/uL Lymph # (Auto) (0.6-2.4) K/uL [place] # (Auto) (0.0-0.8) K/uL Eos # (Auto) (0.0-0.7) K/uL Baso # (Auto) (0.0-0.1) K/uL Add Manual Diff YES Neutrophils % (Manual) 70 (48.0-80.0) % Lymphocytes % (Manual) 18 (16.0-40.0) % Monocytes % (Manual) 12 (0.0-15.0) % Nucleated RBC % 0.0 /100WBC Absolute Seg Neuts 7.1 H (1.4-5.7) Lymphocytes # (Manual) 1.8 (0.6-2.4) Monocytes # (Manual) 1.2 H (0.0-0.8) Nucleated RBCs # 0 K/uL Sodium 140 (136-148) mmol/L Potassium 3.5 (3.5-5.1) mmol/L Chloride 104 (98-107) mmol/L Carbon Dioxide 24.0 (21.0-32.0) mmol/L BUN 18 (7.0-18.0) mg/dL Creatinine 1.2 (0.8-1.3) mg/dL Est Cr Clr Drug Dosing 74.35 mL/min Estimated GFR (MDRD) > 60.0 ml/min Glucose 135 H (74-106) mg/dL POC Glucose 122 H (60-110) mg/dL Calcium 7.9 L (8.5-10.1) mg/dL Creatine Kinase 110 (26-308) U/L 08/01/19 08/02/19 08/02/19 Range/Units 17:02 05:18 05:18 WBC 9.76 (4.0-11.0) K/uL RBC 4.46 L (4.50-5.90) M/uL Hgb 13.4 (13.0-17.0) g/dL Hct 40.6 (38.0-50.0) % MCV 91.0 (80.0-98.0) fL MCH 30.0 (27.0-32.0) pg MCHC 33.0 (31.0-37.0) g/dL RDW Std Deviation 47.5 (28.0-62.0) fl RDW Coeff of Colt 14 (11.0-15.0) % Plt Count 279 (150-400) K/uL MPV 11.50 (7.40-12.00) fL Neut % (Auto) 62.8 (48.0-80.0) % Lymph % (Auto) 23.6 (16.0-40.0) % [place] % (Auto) 12.1 (0.0-15.0) % Eos % (Auto) 1.1 (0.0-7.0) % Baso % (Auto) 0.4 (0.0-1.5) % Neut # (Auto) 6.1 H (1.4-5.7) K/uL Lymph # (Auto) 2.3 (0.6-2.4) K/uL [place] # (Auto) 1.2 H (0.0-0.8) K/uL Eos # (Auto) 0.1 (0.0-0.7) K/uL Baso # (Auto) 0.0 (0.0-0.1) K/uL Add Manual Diff Neutrophils % (Manual) (48.0-80.0) % Lymphocytes % (Manual) (16.0-40.0) % Monocytes % (Manual) (0.0-15.0) % Nucleated RBC % 0.0 /100WBC Absolute Seg Neuts (1.4-5.7) Lymphocytes # (Manual) (0.6-2.4) Monocytes # (Manual) (0.0-0.8) Nucleated RBCs # 0 K/uL Sodium 143 (136-148) mmol/L Potassium 3.8 (3.5-5.1) mmol/L Chloride 108 H (98-107) mmol/L Carbon Dioxide 22.5 (21.0-32.0) mmol/L BUN 10 (7.0-18.0) mg/dL Creatinine 1.0 (0.8-1.3) mg/dL Est Cr Clr Drug Dosing 89.22 mL/min Estimated GFR (MDRD) > 60.0 ml/min Glucose 174 H (74-106) mg/dL POC Glucose 140 H (60-110) mg/dL Calcium 7.8 L (8.5-10.1) mg/dL Creatine Kinase (26-308) U/L 08/02/19 Range/Units 06:17 WBC (4.0-11.0) K/uL RBC (4.50-5.90) M/uL Hgb (13.0-17.0) g/dL Hct (38.0-50.0) % MCV (80.0-98.0) fL MCH (27.0-32.0) pg MCHC (31.0-37.0) g/dL RDW Std Deviation (28.0-62.0) fl RDW Coeff of Colt (11.0-15.0) % Plt Count (150-400) K/uL MPV (7.40-12.00) fL Neut % (Auto) (48.0-80.0) % Lymph % (Auto) (16.0-40.0) % [place] % (Auto) (0.0-15.0) % Eos % (Auto) (0.0-7.0) % Baso % (Auto) (0.0-1.5) % Neut # (Auto) (1.4-5.7) K/uL Lymph # (Auto) (0.6-2.4) K/uL [place] # (Auto) (0.0-0.8) K/uL Eos # (Auto) (0.0-0.7) K/uL Baso # (Auto) (0.0-0.1) K/uL Add Manual Diff Neutrophils % (Manual) (48.0-80.0) % Lymphocytes % (Manual) (16.0-40.0) % Monocytes % (Manual) (0.0-15.0) % Nucleated RBC % /100WBC Absolute Seg Neuts (1.4-5.7) Lymphocytes # (Manual) (0.6-2.4) Monocytes # (Manual) (0.0-0.8) Nucleated RBCs # K/uL Sodium (136-148) mmol/L Potassium (3.5-5.1) mmol/L Chloride (98-107) mmol/L Carbon Dioxide (21.0-32.0) mmol/L BUN (7.0-18.0) mg/dL Creatinine (0.8-1.3) mg/dL Est Cr Clr Drug Dosing mL/min Estimated GFR (MDRD) ml/min Glucose (74-106) mg/dL POC Glucose 150 H (60-110) mg/dL Calcium (8.5-10.1) mg/dL Creatine Kinase (26-308) U/L Med Orders - Current: Current Medications Acetaminophen (Tylenol) 650 mg PO Q4H PRN PRN Reason: Pain Albuterol/Ipratropium (Duoneb 3.0-0.5 Mg/3 Ml) 3 ml NEB Q4H PRN PRN Reason: Shortness of Breath Guaifenesin/Codeine Phosphate (Robitussin Ac) 5 ml PO Q4H PRN PRN Reason: Cough Sodium Chloride (Normal Saline) 1,000 mls @ 100 mls/hr IV Q10H [facility] Last Admin: 08/02/19 07:24 Dose: 100 mls/hr Levofloxacin/Dextrose 750 mg/ (Premix) 150 mls @ 100 mls/hr IV Q24H [facility] Last Admin: 08/01/19 10:14 Dose: 100 mls/hr Ibuprofen (Motrin) 400 mg PO Q6H PRN PRN Reason: Pain Insulin Aspart (Novolog) 0 unit SUBCUT TIDAC [facility]; Protocol Last Admin: 08/02/19 08:25 Dose: Not Given Levothyroxine Sodium (Synthroid) 88 mcg PO ACBREAKFAST [facility] Last Admin: 08/02/19 07:23 Dose: 88 mcg Oseltamivir Phosphate (Tamiflu) 75 mg PO BID [facility] Last Admin: 08/02/19 08:23 Dose: 75 mg Discontinued Medications Albuterol/Ipratropium (Duoneb 3.0-0.5 Mg/3 Ml) 3 ml NEB ONETIME ONE Stop: 08/01/19 01:49 Last Admin: 08/01/19 01:58 Dose: 3 ml Atorvastatin Calcium (Lipitor) 40 mg PO BEDTIME [facility] Sodium Chloride (Normal Saline) 1,000 mls @ 1,000 mls/hr IV .Bolus ONE Stop: 08/01/19 02:12 Last Admin: 08/01/19 01:17 Dose: 1,000 mls/hr Iopamidol (Isovue Multipack-370 (76%)) 50 ml IVPUSH ONETIME ONE Stop: 08/01/19 12:09 Last Admin: 08/01/19 12:08 Dose: 50 ml Ketorolac Tromethamine (Toradol) 30 mg IVPUSH ONETIME ONE Stop: 08/01/19 01:15 Last Admin: 08/01/19 01:18 Dose: 30 mg Ondansetron HCl (Zofran) 4 mg IVPUSH ONETIME ONE Stop: 08/01/19 01:15 Last Admin: 08/01/19 01:18 Dose: 4 mg - Exam Quality Assessment: Denies: Supplemental Oxygen General: Reports: Alert, Oriented, Cooperative Lungs: Reports: Clear to Auscultation, Normal Respiratory Effort, Rhonchi (scant , cleared with cough) Cardiovascular: Reports: Regular Rate, Regular Rhythm GI/Abdominal Exam: Normal Bowel Sounds, Soft, Non-Tender Extremities: Normal Inspection, Normal Range of Motion, Non-Tender Neurological: Reports: No New Focal Deficit Psy/Mental Status: Reports: Alert, Normal Affect, Normal Mood
[2019-08-02] MEDS ORDERED: Levofloxacin 500 MG Tab PO ONE (10:33)
[2019-08-02] MEDS: Levofloxacin/Dextrose 5%-Water 750 MG in Premix Bag 1 BAG IV SCH (10:36)
[2019-08-02 11:17] VITALS: BP 133/81; PULSE 70
== END 2019-08-02 12:30 | disposition home or self-care (01) | DRG 139 ==
LOC: MW.ED 00:19 → MW.MS 03:12 → OBSVTOIN 14:39 → MW.MS 16:31
PROVIDERS: ADMIT Internal Medicine; ATTEND Internal Medicine
DX: J11.00 Influenza due to unidentified influenza virus with unspecified type of pneumonia (principal); E78.5 Hyperlipidemia, unspecified; I10 Essential (primary) hypertension; R09.02 Hypoxemia; E78.00 Pure hypercholesterolemia, unspecified; J44.0 Chronic obstructive pulmonary disease with (acute) lower respiratory infection; E03.9 Hypothyroidism, unspecified; F17.200 Nicotine dependence, unspecified, uncomplicated; E11.9 Type 2 diabetes mellitus without complications; Z79.84 Long term (current) use of oral hypoglycemic drugs; Z79.890 Hormone replacement therapy; Z90.49 Acquired absence of other specified parts of digestive tract
CPT/HCPCS: 36415; 71045; 71045-26; 71275; 71275-26; 80048; 80053; 81001; 82550; 82962; 84484; 85025; 85027; 87081; 87804; 87880-QW; 93005; 94640; 96361; 96374; 96375; 99284; 99285-25; A9270-GY; J1815-GY; J1885; J1956; J2405; J7030; J7620-GY; Q9967

== ENCOUNTER 2021-09-16 19:45 | Emergency (ER) | payer BC ==
[2021-09-16] MEDS: Heparin Sodium 5,000 Units/ML Vial IVPUSH STA (21:23)
[2021-09-16] MEDS: Morphine 4 MG/ML VIAL IVPUSH ONE (21:23)
[2021-09-16] MEDS: Iopamidol 755 MG/ML 500 ML Multipack Bottle IVPUSH STA (21:27)
[2021-09-16 22:04] LABS: CARBON DIOXIDE,CO2 21.4 mmol/L (21.0-32.0); POTASSIUM,K 4.4 mmol/L (3.5-5.1)
[2021-09-16] MEDS: Heparin Sodium/0.45% NaCl 500 ML IV SCH (22:45)
[2021-09-16] MEDS: Heparin Sodium/0.45% NaCl 500 ML ONE (22:46)
[2021-09-17] MEDS ORDERED: Lactated Ringers 1,000 ML IV STA (00:02)
[2021-09-17 00:16] VITALS: BP 143/81; PULSE 99
== END 2021-09-17 00:46 ==
LOC: MW.ED 19:45
DX: I77.1 Stricture of artery (principal); E11.65 Type 2 diabetes mellitus with hyperglycemia; E78.00 Pure hypercholesterolemia, unspecified; I10 Essential (primary) hypertension; J44.9 Chronic obstructive pulmonary disease, unspecified; E03.9 Hypothyroidism, unspecified; Z20.822 Contact with and (suspected) exposure to COVID-19; Z79.84 Long term (current) use of oral hypoglycemic drugs; Z79.899 Other long term (current) drug therapy
CPT/HCPCS: 36415; 73706; 80053; 83605; 85025; 85610; 85730; 87635; 96365; 96366; 96375; 99285; J1644; J2270; Q9967; U0002

== ENCOUNTER 2021-11-17 10:47 | Emergency (ER) | payer BC ==
[2021-11-17] MEDS ORDERED: fentaNYL 50 MCG/ML SDV IVPUSH ONE ×2 (11:39→15:24)
[2021-11-17] MEDS ORDERED: Sodium Chloride 0.9% 1,000 ML IV ONE ×2 (11:39→13:11)
[2021-11-17] MEDS ORDERED: Sodium Chloride 0.9% 2.5 ML Syringe FLUSH PRN (11:39)
[2021-11-17] MEDS ORDERED: Sodium Chloride 0.9% 10 ML Syringe FLUSH PRN (11:39)
[2021-11-17] MEDS ORDERED: Clindamycin Phosphate in D5W 600 MG in Premix Bag 1 BAG IV ONE ×2 (11:41)
[2021-11-17] MEDS ORDERED: VANCOmycin 1.5 GM/300 ML 1.5 GM in Premix Bag 1 BAG IV ONE (12:00)
[2021-11-17 13:07] LABS: CARBON DIOXIDE,CO2 20.5 mmol/L (21.0-32.0); POTASSIUM,K 3.9 mmol/L (3.5-5.1)
[2021-11-17] MEDS ORDERED: Iopamidol 755 MG/ML 500 ML Multipack Bottle IVPUSH STA (14:12)
[2021-11-17 17:28] VITALS: BP 144/88; PULSE 99
== END 2021-11-17 17:15 | disposition home or self-care (01) ==
LOC: MW.ED 10:47
DX: T81.49XA Infection following a procedure, other surgical site, initial encounter (principal); L03.115 Cellulitis of right lower limb; I10 Essential (primary) hypertension; J44.9 Chronic obstructive pulmonary disease, unspecified; E11.9 Type 2 diabetes mellitus without complications; E03.9 Hypothyroidism, unspecified; Z79.899 Other long term (current) drug therapy
CPT/HCPCS: 36415; 73706; 80053; 83605; 85025; 85610; 87040; 87070; 87205; 96365; 96366; 96367; 96375; 96376; 99284; J3010; J3370; J3490; J7030; Q9967

== ENCOUNTER 2025-04-12 11:22 | Emergency (ER) | payer SELFPAY ==
[2025-04-12] MEDS ORDERED: Sodium Chloride 0.9% 2.5 ML Syringe FLUSH PRN (11:34)
[2025-04-12] MEDS ORDERED: Sodium Chloride 0.9% 10 ML Syringe FLUSH PRN (11:34)
[2025-04-12 11:46] VITALS: BP 136/110; PULSE 98
[2025-04-12 11:52] LABS: BASOPHILS ABSOLUTE AUTO 0.05 K/uL (0.00-0.20); BASOPHILS PERCENT AUTO 0.5 % (0.0-1.0); EOSINOPHILS ABSOLUTE AUTO 0.10 K/uL (0.00-0.45); EOSINOPHILS PERCENT AUTO 1.0 % (0.0-6.0); IMMATURE GRAN ABSOLUTE AUTO 0.03 K/uL (0.00-0.05); IMMATURE GRAN PERCENT AUTO 0.3 % (0.0-0.4); LYMPHOCYTES ABSOLUTE AUTO 1.57 K/uL (1.00-4.80); LYMPHOCYTES PERCENT AUTO 15.3 % (24.0-44.0); MEAN PLATELET VOLUME 10.6 fL (9.4-12.4); MONOCYTES ABSOLUTE AUTO 0.78 K/uL (0.00-0.80); MONOCYTES PERCENT AUTO 7.6 % (0.0-8.0); NEUTROPHILS ABSOLUTE AUTO 7.76 K/uL (1.80-7.70); NEUTROPHILS PERCENT AUTO 75.3 % (41.0-71.0); NRBC ABSOLUTE 0.00 K/uL (0.00-0.02); NRBC PERCENT 0.0 /100WBC (0.0-0.2); PLATELET COUNT,PLT 337 K/uL (150-400); RED BLOOD CELL COUNT 5.86 M/uL (4.52-5.90); WHITE BLOOD CELL COUNT,WBC 10.29 K/uL (3.9-11.3)
[2025-04-12] MEDS: Ketorolac 30 MG/ML SDV IVPUSH ONE (11:57)
[2025-04-12] MEDS: Ondansetron 4 MG/2 ML SDV IVPUSH ONE (11:57)
[2025-04-12] MEDS: Dexamethasone Sod Phos Preservative Free 10 MG/ML Vial IVPUSH ONE (11:58)
[2025-04-12 12:21] LABS: A/G RATIO 0.8 (0.9-1.6); ALANINE AMINOTRANSFERASE,ALT 15.0 IU/L (14-63); ASPARTATE AMNIOTRANSFERASE,AST 12.0 IU/L (15-37); BILIRUBIN TOTAL 0.5 mg/dL (0.2-1.0); BLOOD UREA NITROGEN,BUN 13.0 mg/dL (7.0-18.0); CARBON DIOXIDE,CO2 21.4 mmol/L (21.0-32.0); CHLORIDE,CL 101.0 mmol/L (98-107); CREATININE 1.1 mg/dL (0.8-1.3); EST CRCL DRUG DOSING (CG) 75.58 mL/min; GLUCOSE RANDOM 276.0 mg/dL (74-106); POTASSIUM,K 4.1 mmol/L (3.5-5.1); PROTEIN TOTAL,TP 7.7 g/dL (6.4-8.2); SODIUM,NA 135.0 mmol/L (136-148)
[2025-04-12 12:32] LABS: ESTIMATED GFR 78.0 mL/min (>60)
[2025-04-12] MEDS: Iopamidol 755 MG/ML 500 ML Multipack Bottle IVPUSH ONE (13:07)
[2025-04-12 13:30] LABS: LACTIC ACID < 0.3 mmol/L (0.4-2.0)
== END 2025-04-12 15:13 | disposition home or self-care (01) ==
LOC: MW.ED 11:22
DX: K11.21 Acute sialoadenitis (principal); I10 Essential (primary) hypertension; E78.00 Pure hypercholesterolemia, unspecified; E11.9 Type 2 diabetes mellitus without complications; E03.9 Hypothyroidism, unspecified; J44.9 Chronic obstructive pulmonary disease, unspecified; Z79.899 Other long term (current) drug therapy; Z79.01 Long term (current) use of anticoagulants; Z90.49 Acquired absence of other specified parts of digestive tract; Z75.3 Unavailability and inaccessibility of health-care facilities
CPT/HCPCS: 36415; 70491; 80053; 83605; 83690; 83735; 85025; 96361; 96374; 96375; 99284; J1100; J1171; J1885; J2405; J7030; Q9967; 99283

== ENCOUNTER 2025-04-29 13:51 | Emergency (ER) | payer OTHER ==
[2025-04-29] MEDS ORDERED: Sodium Chloride 0.9% 10 ML Syringe FLUSH PRN (13:52)
[2025-04-29] MEDS ORDERED: Sodium Chloride 0.9% 2.5 ML Syringe FLUSH PRN (13:52)
[2025-04-29 14:06] LABS: BASOPHILS ABSOLUTE AUTO 0.06 K/uL (0.00-0.20); BASOPHILS PERCENT AUTO 0.5 % (0.0-1.0); EOSINOPHILS ABSOLUTE AUTO 0.15 K/uL (0.00-0.45); EOSINOPHILS PERCENT AUTO 1.3 % (0.0-6.0); IMMATURE GRAN ABSOLUTE AUTO 0.03 K/uL (0.00-0.05); IMMATURE GRAN PERCENT AUTO 0.3 % (0.0-0.4); LYMPHOCYTES ABSOLUTE AUTO 2.36 K/uL (1.00-4.80); LYMPHOCYTES PERCENT AUTO 20.6 % (24.0-44.0); MEAN PLATELET VOLUME 10.6 fL (9.4-12.4); MONOCYTES ABSOLUTE AUTO 0.74 K/uL (0.00-0.80); MONOCYTES PERCENT AUTO 6.5 % (0.0-8.0); NEUTROPHILS ABSOLUTE AUTO 8.13 K/uL (1.80-7.70); NEUTROPHILS PERCENT AUTO 70.8 % (41.0-71.0); NRBC ABSOLUTE 0.00 K/uL (0.00-0.02); NRBC PERCENT 0.0 /100WBC (0.0-0.2); PLATELET COUNT,PLT 238 K/uL (150-400); RED BLOOD CELL COUNT 5.67 M/uL (4.52-5.90); WHITE BLOOD CELL COUNT,WBC 11.47 K/uL (3.9-11.3)
[2025-04-29 14:21] LABS: INR 1.01 (0.86-1.11)
[2025-04-29] MEDS: Iopamidol 755 Mg/ML 100 ML Bottle IVPUSH ONE (14:35)
[2025-04-29 14:40] LABS: A/G RATIO 0.8 (0.9-1.6); ALANINE AMINOTRANSFERASE,ALT 22.0 IU/L (14-63); ASPARTATE AMNIOTRANSFERASE,AST 14.0 IU/L (15-37); BILIRUBIN TOTAL 0.6 mg/dL (0.2-1.0); BLOOD UREA NITROGEN,BUN 13.0 mg/dL (7.0-18.0); CARBON DIOXIDE,CO2 22.7 mmol/L (21.0-32.0); CHLORIDE,CL 105.0 mmol/L (98-107); CREATININE 1.1 mg/dL (0.8-1.3); EST CRCL DRUG DOSING (CG) 75.58 mL/min; ESTIMATED GFR 78.0 mL/min (>60); GLUCOSE RANDOM 224.0 mg/dL (74-106); POTASSIUM,K 4.4 mmol/L (3.5-5.1); PROTEIN TOTAL,TP 7.8 g/dL (6.4-8.2); SODIUM,NA 143.0 mmol/L (136-148)
[2025-04-29] MEDS: Tenecteplase 25 MG KIT IVPUSH ONE (15:39)
[2025-04-29 17:27] VITALS: BP 135/79; PULSE 89
== END 2025-04-29 17:21 ==
LOC: MW.ED 13:51
DX: I63.9 Cerebral infarction, unspecified (principal); I10 Essential (primary) hypertension; E78.00 Pure hypercholesterolemia, unspecified; E11.9 Type 2 diabetes mellitus without complications; E03.9 Hypothyroidism, unspecified; Z79.01 Long term (current) use of anticoagulants; Z79.899 Other long term (current) drug therapy; Z90.49 Acquired absence of other specified parts of digestive tract; Z87.891 Personal history of nicotine dependence
CPT/HCPCS: 36415; 70450; 70496; 70498; 71045; 80053; 82947; 83735; 84484; 85025; 85610; 85730; 93005; 99285; J7040; Q9967; 99284